=== PATIENT | female | born 2000 | race Caucasian/White ===

== ENCOUNTER → 2023-04-16 | Outpatient (CLI) | payer OTHER, SELFPAY ==
[2023-04-18 21:07] LABS: Chlamydia By Nucleic Acid AMP Negative (Negative); Gonococcus By Nucleic Acid AMP Negative (Negative)
== END | disposition home or self-care (01) ==
LOC: LABSPEC 14:49
PROVIDERS: Referring Provider Registered Nurse; Visit Provider Registered Nurse
DX: Z34.90 Encounter for supervision of normal pregnancy, unspecified, unspecified trimester (principal)
CPT/HCPCS: 87077; 87086; 87088; 87186; 87491; 87591

== ENCOUNTER 2023-04-21 10:59 | Day surgery (SDC) | payer OTHER, SELFPAY ==
[2023-04-21 11:37] VITALS: BP 118/69; PULSE 79; RESP 16; TEMP 36.3; O2SAT 100; BMI 28.0
[2023-04-21] MEDS: Doxycycline 100 MG CAPSULE PO (11:40)
[2023-04-21] MEDS: Lactated Ringers 1,000 ML 15 ML IV (11:42)
[2023-04-21 11:45] LABS: Hematocrit 40.4 % (37-47); Hemoglobin 14.2 g/dL (12.0-15.0); Mean Corp Hgb Conc 35.1 g/dL (32-36); Mean Corpuscular Hgb 30.5 pg (27.0-32.0); Mean Corpuscular Volume 86.9 fL (81-99); Mean Platelet Vol. 10.3 fl (6.2-12.0); Platelet Count 288 K/mm3 (150-450); RBC Distribution Width CV 12.2 % (11.6-14.6); RBC Distribution Width SD 38.9 fl (35.1-43.9); Red Blood Count 4.65 M/mm3 (4.2-5.4); White Blood Count 9.2 K/mm3 (4.4-11.0)
--- NOTE | 2023-04-21 12:25 | PCM.HP.BLA ---
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 Is patient in pain?: No Allergies No Known Allergies Allergy (Unverified 04/16/23 13:01) Medications vit,calcium no.40-iron fum 27 mg iron-folate no.1 1 mg tablet (PNV-Select) tab PO 04/16/23 [History Confirmed 04/16/23] Last Menstrual Period: 02/18/23 Zika: Zika virus screening: Negative : No PFSH PFSH Surgical History (Updated 04/16/23 @ 12:52 by Lynn Shaffer MA) [place] teeth removed Family History (Updated 04/16/23 @ 12:53 by Lynn Shaffer MA) Grandfather Heart diseaseGrandmother Uterine cancer Heart disease Social History (Updated 04/16/23 @ 13:23 by Stephanie Singh CNM) adopted: No household members: spouse housing: house current occupational status: employed 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 OB Visit BENI Calculator Estimated Delivery Date Method Current WG Current Estimate 11/25/23 LMP (Certain) 8w 1d Estimated Due Date: 11/08/20 Expected Delivery Route/Plan Labor Preferences- CB/BF classes: [] labor support person: [] labor intervention preferences: [] pain management options preferred: [] cut cord/dad catch: [] : [] PP control planned: [] discussed possible routes of delivery and associated risks: [] special requests: [] Specific Issue/Plans Covid status: [] Flu vaccine: [] Tdap vaccine: [] Rhogam: [] LARC form signed: [] Problem list reviewed and updated with the most current plan of care details and appropriate orders placed. Relevant counseling for the gestational age provided. Continue routine care and follow up unless otherwise noted in visit notes/problem list details Initial Weight: 168 lb Date <del>?</del> EGA Weight BP Urine Prot <del>?</del> Glucose FHR FuHt Pres Dilation <del>?</del> Effaced St Visit Note 04/16/23<del>?</del> 8w 1d 168 lb 6 oz(+6 oz) 126/77 <del>?</del> 0 <del>?</del> JV- CRL is consistent wit the established gestational age, however there is no heart beat present and gestational sac appears enlarged and irregular. Patient was counseled on risks vs benefits of treatment options of missed . She would like to proceed with surgery. Menstrual History Last Menstrual Period: 02/18/23 On hormonal BC at conception: No Antepartum Record Genetic Screening: Congenital Heart Defect: Other, Neural Tube Defect: Other, Hemoglobinopathy Or Carrier: Other, Cystic Fibrosis: Other, Chromosome Abnormality: Other, Shane-Sachs: Other, Hemophilia: Other, Intellectual Disability/Autism: Other, Recurrent Loss/Stillbirth: Other, Other Structural Defect: Other, Other Genetic Disease: Other and Maternal Metabolic Disorder: Other Infection History: Live with someone with TB or Exposed to TB: No, Patient or Partner has history of Genital Herpes: No, Rash or Viral illness since last mentrual period: No, Prior GBS-Infected child: No, History of STD: No, HIV Infection: No, History of Hepatitis: No, Recent travel outside of [place]: No, Concern for hepatitis exposure: No and Varicella immune: Yes Medical History Medical History: Negative: Diabetes, Hypertension, Heart disease, Auto-immune disorder, Kidney disease/UTI, Neurologic/epilepsy, Psychiatric, Depression/ depression, Hepatitis/liver disease, Varicosities/phlebitis, Thyroid dysfunction, Trauma/domestic violence, History of blood transfusions, D (Rh) Sensitized, Pulmonary (e.g.,TB,Asthma), Seasonal allergies, Drug/latex allergies/reactions, Breast, Textile Clothing And Footwear Mechanic surgery, Operations/hospitalizations, Anesthetic complications, History of abnormal pap, Uterine anomaly/radha, Infertility, Anti-retroviral treatment, Relevant family history and Other ACOG First Trimester First Trimester: Desire for , Alcohol, Tobacco Cessation, Illicit/Recreational Drug/Substance Use, Intimate Partner Violence, Barriers to care, Unstable Housing, Communication Barriers, Environmental/Work Hazards, Anticipated Course of Care, Nurtrition and weight gain, Toxoplasmosis Precations, Use of Any medications, Sexual activity, Exercise, Dental Care, Sauna/Hot tub use, Seat Belt use, Childbirth classes/Hospital facilities, , Travel, Indications for Ultrasound and Screening for Aneuploidy ROS Const Reports system reviewed and no additional complaints, except as documented, Reports fatigue and Denies fever(s) Eyes Reports system reviewed and no additional complaints, except as documented ENT Reports system reviewed and no additional complaints, except as documented Card Denies chest pain and Denies dyspnea Resp Reports system reviewed and no additional complaints, except as documented, Denies cough and Denies dyspnea GI Denies abdominal pain and Reports nausea Reports system reviewed and no additional complaints, except as documented Musc Reports system reviewed and no additional complaints, except as documented Skin/Breast Reports system reviewed and no additional complaints, except as documented Neuro Yes system reviewed and no additional complaints, except as documented Psych Reports system reviewed and no additional complaints, except as documented Endo Reports system reviewed and no additional complaints, except as documented and Reports fatigue Exam Const General: healthy appearing, comfortable and no acute distress Orientation: alert Resp Effort & Inspection: normal respiratory effort GI Inspection: normal to inspection Palpation: soft and no hepatosplenomegaly General: bladder normal to palpation External Female Exam: normal external appearance and normal appearance of the urethra Urethra: normal appearance of the urethra Speculum Exam - Vagina: normal appearance of the vagina and normal vaginal discharge Speculum Exam - Cervix: normal appearance of the cervix Bimanual Exam- Vagina & Uterus: normal bimanual exam, bladder normal to palpation, non-tender and other Bimanual Exam- Adnexa, other: non-tender Skin General: no rashes or lesions noted Neuro Motor: muscle tone normal throughout and no movement abnormalities noted Extrem General: normal to inspection and full ROM Supplemental Info ACOG book given and patient encouraged to read about nutrition, exercise, weight gain, and food avoidance in . Coding Level of Care Code Off vis,est,level 4 Diagnoses Supervision of normal first Z34.00 8 weeks gestation of Z3A.08 Weeks of gestation: 8 weeks Missed O02.1 Assessment and Plan Assessment and Plan (1) Supervision of normal first : Status: Acute (2) : Status: Acute Qualifiers: Weeks of gestation: 8 weeks Qualified Code(s): Z3A.08 - 8 weeks gestation of (3) Missed : Status: Acute Orders: Orders Culture, Urine Today Z34.90 - Encounter for supervision of normal , unspecified, unspecified trimester Chlamydia/GC EMILIA aptima Today Z34.90 - Encounter for supervision of normal , unspecified, unspecified trimester Plan After discussing the patient's diagnosis and treatment plan options, patient wishes to proceed with surgical management. The plan is for suction dilation and curettage on Friday at noon. I have discussed with the patient the risks, benefits, and alternatives of the procedure which include but are not limited to risks of anesthesia, bleeding, infection, possible damage to bowel, bladder, or surrounding vasculature which could lead to additional surgery to evaluate any complications. Patient agrees to procedure and wishes to proceed. ACOG/uptodate references given for additional information regarding procedure.
--- NOTE | 2023-04-21 12:28 | DCINST_ITS ---
Discharge Instructions Diet Discharge Diet: No restrictions Activity Discharge Activity: Return to Normal Activity, May Shower and May Take a Tub Bath (after 1 week) May resume sexual activity in: 1-2 weeks Weight Bearing Status: Weight bearing as tolerated Lifting Restrictions: none Dressing / Incision Call your doctor if you observe: Fever of 101 or Higher, Using more than 1 pad per hour, Shortness of breath and Uncontrolled pain Follow Up Care Please Follow Up With: Eli Leone DO When: Call [phone] to schedule appointment. Test Results: Test results from this visit will be discussed in further detail at your follow- up appointment, if applicable. Discharge Plan Admission Primary Reason for Your Visit: dilation curettage Attending Provider: Eli Leone Primary Care Provider: Miah Recinos Discharge Orders/Prescriptions Prescriptions: New ibuprofen 800 mg tablet 800 mg PO Q8H PRN (Reason: pain) Qty: 30 0RF oxycodone-acetaminophen [Percocet] 5-325 mg tablet 1 tab PO Q4H PRN (Reason: pain) 3 Days Qty: 7 0RF Rx Instructions: 1-2 tabs q 4 hrs as needed for pain Continued PNV-Select 27-1 mg tablet 1 tab PO DAILY Referrals / Follow Up: Care Physician,No Primary [Non-Staff] - Disposition Disposition (needs filled in before D/C Order can be placed): Home, Self Care
--- NOTE | 2023-04-21 12:30 | POC_PTH ---
PATIENT: KLEBER VAZ LOC: [facility] [place] U[place][id number] AGE/SX: 22/ ROOM: RE04/21/[address]: Dr. Eli Leone DO : 2000 BED: DIS: 04/21/2023 SPEC #: [id number] RECD: 04/21/23 16:55 STATUS: MARYCRUZ ROBERTS #: [id number] MICHAEL: 04/21/23 12:[address]: Eli Leone DEPT: SURGICAL PATHOLOGY RECD BY: Marcelle Corona ENTERED: 04/22/23 08:02 SP TYPE: PROD CONC OTHR DR: Dr. Miah Recinos MD Tissues: Product of conception, NOS Procedures: Surgery Specimen Level IV HEADER OPERATION: Dilation and curettage, suction PRE-OP DIAGNOSIS: Missed TISSUE SUBMITTED: Products of conception MICROSCOPIC DIAGNOSIS Products of conception, suction dilation and curettage: Immature chronic villi and decidua (products of conception), clinically missed . SJ: 04/23/2023 MICROSCOPIC DESCRIPTION Slides are reviewed. GROSS DESCRIPTION Received is one container labeled with the patient name and designated products of conception. The specimen consists of multiple irregular fragments of hemorrhagic soft tissue that in aggregate measure 9 x 8 x 2.5 cm. tissue is not identified. Lead Ramp Agent tissue is submitted in two cassettes. / GEORGE:becca 04/22/23 TC: 5 CPT: 09322
[2023-04-21] MEDS: Lidocaine 1% (20 ml mdv) 20 ML Vial (12:49)
--- NOTE | 2023-04-21 13:10 | OP.PCM_ITS ---
Problems Associated Problem List Diagnoses (1) Missed : Report of Operation Date of Procedure: 04/21/23 Pre-Operative Diagnosis: 8 week missed Post-Operative Diagnosis: 8 week missed Surgery/Procedure Performed:: suction dilation and curettage Description of Surgical Findings:: Patient was taken to the operating room and placed under MAC local anesthesia. She was prepped and draped in the normal sterile fashion the dorsal lithotomy position. Bladder was drained of clear urine and anterior lip of the cervix was grasped and the uterus sounded to 11cm Cervix was progressively dilated to allow passage of a 9mm suction curette. Progressive passes were made removing the retained products of conception without complication. Sharp curettage confirmed complete removal of the retained products. All instruments were removed from the vagina and excellent hemostasis was noted and the patient was taken to recovery in stable condition. a bedside ultrasound was performed showing a thin endometrium after the completion of the surgery Surgeon: Eli Leone education reporter: None Type of Anesthesia: MAC/Supplemental/Local Specimen's removed: products of conception Estimated Blood Loss (mL): 100cc Description of Procedure: Patient was taken to the operating room and placed under MAC local anesthesia. She was prepped and draped in the normal sterile fashion the dorsal lithotomy position. Bladder was drained of clear urine and anterior lip of the cervix was grasped and the uterus sounded to 11cm Cervix was progressively dilated to allow passage of a 9mm suction curette. Progressive passes were made removing the retained products of conception without complication. Sharp curettage confirmed complete removal of the retained products. All instruments were removed from the vagina and excellent hemostasis was noted and the patient was taken to recovery in stable condition. a bedside ultrasound was performed showing a thin endometrium after the completion of the surgery Admit VTE Documentation VTE Present on Admission: No VTE Mechan Device Prophylaxis: SCD's VTE Pharm Prophylaxis ordered?: No Multi Select Codes Urinary/Genital Urinary/Genital CPT Codes: 29026 Surg Trtmt missed Ab 1TM
[2023-04-21 13:15] VITALS: BP 104/55; BP 118/69; PULSE 70; RESP 16; TEMP 36.1; O2SAT 100
[2023-04-21 13:20] VITALS: BP 107/49; BP 118/69; PULSE 78; RESP 16; O2SAT 100
[2023-04-21 13:25] VITALS: BP 106/56; BP 118/69; PULSE 79; RESP 16; O2SAT 100
[2023-04-21 13:29] VITALS: BP 111/58; BP 118/69; PULSE 62; RESP 16; TEMP 36.5; O2SAT 100
[2023-04-21 14:01] VITALS: BP 118/69
== END 2023-04-21 14:14 | disposition home or self-care (01) ==
LOC: SDC 11:04 → AC 11:04
PROVIDERS: PCP Family Medicine; Referring Provider Obstetrics & Gynecology; Visit Provider Obstetrics & Gynecology
PROC: (CPT 59820; principal; 2023-04-21 12:15)
DX: O02.1 Missed abortion (principal)
CPT/HCPCS: 59820; 85027; 86850; 86900; 86901; 88305; J7120; J2405

== ENCOUNTER → 2023-12-29 | Outpatient (CLI) | payer OTHER, SELFPAY ==
[2024-01-01 07:08] LABS: Chlamydia By Nucleic Acid AMP Negative (Negative); Gonococcus By Nucleic Acid AMP Negative (Negative)
== END | disposition home or self-care (01) ==
LOC: LABSPEC 16:16
PROVIDERS: PCP Family Medicine; Referring Provider Obstetrics & Gynecology; Visit Provider Obstetrics & Gynecology
DX: O09.90 Supervision of high risk pregnancy, unspecified, unspecified trimester (principal); Z3A.00 Weeks of gestation of pregnancy not specified
CPT/HCPCS: 87086; 87491; 87591

== ENCOUNTER → 2024-01-19 | Outpatient (CLI) | payer OTHER, SELFPAY ==
[2024-01-19 11:11] LABS: Absolute Lymphocyte Count 1.68 X10^3/uL (0.83-4.51); Absolute Neutrophil Count 8.5 X10^3/uL (2.0-7.7); Basophil# 0.08 X10^3/uL; Basophil% 0.7 % (0-1); Eosinophil# 0.43 X10^3/uL; Eosinophils% 3.8 % (0-5); Hematocrit 40.1 % (37-47); Hemoglobin 13.4 g/dL (12.0-15.0); Lymphocyte # 1.68 X10^3/ul (0.83-4.51); Lymphocyte % 14.8 % (19-41); Mean Corp Hgb Conc 33.4 g/dL (32-36); Mean Corpuscular Hgb 29.9 pg (27.0-32.0); Mean Corpuscular Volume 89.5 fL (81-99); Mean Platelet Vol. 10.2 fl (6.2-12.0); Monocyte# 0.69 X10^3/uL; Monocyte% 6.1 % (0-10); NRBC Flagged by Analyzer 0 % (0-5); Neutrophil # 8.45 X10^3/uL (2.7-7.7); Neutrophil % 74.2 % (47-70); Platelet Count 255 K/mm3 (150-450); RBC Distribution Width CV 12.7 % (11.6-14.6); RBC Distribution Width SD 41.4 fl (35.1-43.9); Red Blood Count 4.48 M/mm3 (4.2-5.4); White Blood Count 11.4 K/mm3 (4.4-11.0)
[2024-01-19 12:16] LABS: HIV - WCH Non-Reactive (Nonreactive); Hepatitis B Surface Antigen Non-Reactive (Nonreactive); Hepatitis C Antibody Non-Reactive (Nonreactive); Rubella IgG Reactive (Nonreactive); Syphilis Antibodies Non-reactive
== END | disposition home or self-care (01) ==
LOC: PAVLAB 10:47
PROVIDERS: PCP Family Medicine; Referring Provider Obstetrics & Gynecology; Visit Provider Obstetrics & Gynecology
DX: O09.90 Supervision of high risk pregnancy, unspecified, unspecified trimester (principal)
CPT/HCPCS: 36415; 85025; 86703; 86762; 86780; 86803; 86850; 86900; 86901; 87340

== ENCOUNTER → 2024-04-26 | Outpatient (CLI) | payer OTHER, SELFPAY ==
[2024-04-26 14:33] LABS: Absolute Lymphocyte Count 1.53 X10^3/uL (0.83-4.51); Absolute Neutrophil Count 8.6 X10^3/uL (2.0-7.7); Basophil# 0.07 X10^3/uL; Basophil% 0.6 % (0-1); Eosinophil# 0.28 X10^3/uL; Eosinophils% 2.5 % (0-5); Hematocrit 40.5 % (37-47); Lymphocyte # 1.53 X10^3/ul (0.83-4.51); Lymphocyte % 13.6 % (19-41); Mean Corp Hgb Conc 34.6 g/dL (32-36); Mean Corpuscular Hgb 31.8 pg (27.0-32.0); Monocyte# 0.62 X10^3/uL; Monocyte% 5.5 % (0-10); NRBC Flagged by Analyzer 0 % (0-5); Neutrophil # 8.63 X10^3/uL (2.7-7.7); Neutrophil % 77.1 % (47-70); Platelet Count 244 K/mm3 (150-450); RBC Distribution Width CV 12.7 % (11.6-14.6); RBC Distribution Width SD 42.1 fl (35.1-43.9); White Blood Count 11.2 K/mm3 (4.4-11.0)
[2024-04-26 14:46] LABS: Glucose Challenge Gest 1H 50g 125 mg/dL (70-140)
[2024-04-26 15:12] LABS: HIV - WCH Non-Reactive (Nonreactive); Syphilis Antibodies Non-reactive
[2024-04-26 17:15] LABS: Protein, Urine (Random) < 6.0 mg/dL (<11.9); Protein:Creat Ratio 105 mg/g CRE (0-200)
== END | disposition home or self-care (01) ==
LOC: BWCLAB 13:48
PROVIDERS: Advanced Practice Midwife; PCP Family Medicine; Referring Provider Obstetrics & Gynecology; Visit Provider Obstetrics & Gynecology
DX: O10.919 Unspecified pre-existing hypertension complicating pregnancy, unspecified trimester (principal)
CPT/HCPCS: 36415; 82570; 82950; 84156; 85025; 86703; 86780; 86850; 86900; 86901

== ENCOUNTER 2024-05-11 15:23 | Outpatient (CLI) | payer OTHER, SELFPAY ==
[2024-05-11] VITALS (19 sets, daily range): BP systolic 120–156; BP diastolic 66–87; PULSE 88–112; O2SAT 98–99; BMI 33.3
[2024-05-11 16:33] LABS: Hematocrit 37.4 % (37-47); Mean Corp Hgb Conc 34.8 g/dL (32-36); Mean Corpuscular Hgb 31.4 pg (27.0-32.0); Mean Corpuscular Volume 90.3 fL (81-99); Mean Platelet Vol. 10.9 fl (6.2-12.0); Platelet Count 220 K/mm3 (150-450); RBC Distribution Width CV 12.2 % (11.6-14.6); RBC Distribution Width SD 40.1 fl (35.1-43.9); Red Blood Count 4.14 M/mm3 (4.2-5.4); White Blood Count 11.1 K/mm3 (4.4-11.0)
[2024-05-11 17:07] LABS: Creatinine, Urine (random) < 13.00 mg/dL (NO RANGE EST.); Protein, Urine (Random) < 6.0 mg/dL (<11.9)
[2024-05-11 17:08] LABS: AST(SGOT) 22 U/L (15-37); Alanine Aminotransfer ALT/SGPT 20 U/L (13-56); Creatinine, Serum 0.56 mg/dL (0.55-1.02); EST Glomerular Filtration Rate 140 mL/min (>60); Est Glom Filt Rate - Afr Amer 169 mL/min (>60); Uric Acid 3.1 mg/dL (2.6-6.0)
--- NOTE | 2024-05-11 17:26 | US_ITS ---
STUDY: OBSTETRICAL ULTRASOUND - BIOPHYSICAL PROFILE REASON FOR EXAM: Female, 23 years old hypertension -- LMP: PRIOR ULTRASOUND: None. TECHNIQUE: Transabdominal TECHNICAL QUALITY: Adequate. FINDINGS: There is a single intrauterine fetus. The fetus is in a cephalic presentation. There is demonstrated cardiac activity with a heart rate of 160 bpm. There is a normal amniotic fluid volume. The largest amniotic fluid pocket measures 4.8 x 5 cm. The amniotic fluid index (СВЕТЛАНА) is 12.58 cm. The placenta is anterior and not low-lying There are Grade 1 placental changes. Age by LMP: 30 weeks, 1 days. BENI by LMP: July 19, 2024. BIOPHYSICAL PROFILE: Breathing Movements (FBM): 2 Gross Body Movements (GBM): 2 Tone (FT): 2 Amniotic Fluid Volume (AFV): 2 TOTAL SCORE: / US/Biophysical Prof W/O Non Stres IMPRESSION: Normal biophysical profile of 01/21. Electronically Signed: Phi Shah MD at 21:09 EST Reading Location ID and State: [address] [place] [address] Tel , Service support ,
[2024-05-11] MEDS: Betamethasone/Betamethasone 30 MG/5 ML Vial 12 MG IM (17:46)
[2024-05-11] MEDS: NIFEdipine 30 MG Tablet PO (17:46)
--- NOTE | 2024-05-11 18:36 | US_ITS ---
STUDY: SECOND AND THIRD TRIMESTER OBSTETRICAL ULTRASOUND - LIMITED REASON FOR EXAM: Female, 23 years old pre eclampsia LMP: PRIOR ULTRASOUND: None. TECHNIQUE: Transabdominal TECHNICAL QUALITY: Adequate. FINDINGS: There is a single intrauterine fetus. The fetus is in a cephalic presentation. There is demonstrated cardiac activity with a heart rate of 136 bpm. There is a normal amniotic fluid volume. The largest amniotic fluid pocket measures 5.98 cm. The amniotic fluid index (СВЕТЛАНА) is 11.96 cm. The placenta is anterior and not low-lying There are Grade 1 placental changes. The cervix measures 3.6 cm in length. BIOMETRY: BPD: 7.32 cm: 29 weeks, 3 days HC: 28.52 cm: 31 weeks, 2 days AC: 25.88 cm: 30 weeks, 0 days FL: 5.42 cm: 28 weeks, 5 days Age by LMP: 30 weeks, 1 days. BENI by LMP: July 19, 2024. age by current US: 30 weeks, 1 days. BENI by current US: July 19, 2024. Estimated weight: 1419 grams, +/- 213 grams, 21 percentile. US/OB Limited With Biometrics IMPRESSION: Viable intrauterine gestation approximately 30 weeks gestational age utilizing both sonographic parameters and maternal dates. No significant abnormalities Electronically Signed: Phi Shah MD at 20:59 EST ,
--- NOTE | 2024-05-11 19:48 | OB.TRI.PN_ITS ---
Progress Notes Date of Service: 05/11/24 Progress Note: Patient presents for triage evaluation secondary to elevated bps FHT: 130 Moderate variability reactive isolated mild variable GA appropriate, overall category I tracing [place]: irritability Contractions no cervicla dilation Assessment and plan: cHTN vs GHTN. start procardia. labs WNL. 24 hour urine ordered. growth US and bpp done. celestone x 1 given. Reactive NST, reassuring maternal and status patient discharged to home to follow-up for second dose of steroid tomorrow. See problem list details for additional plan information. Laboratory Studies: Laboratory Tests 05/11/24 Range/Units 16:18 WBC 11.1 H (4.4-11.0) K/mm3 RBC 4.14 L (4.2-5.4) M/mm3 Hgb 13.0 (12.0-15.0) g/dL Hct 37.4 (37-47) % MCV 90.3 (81-99) fL MCH 31.4 (27.0-32.0) pg MCHC 34.8 (32-36) g/dL RDW Std Deviation 40.1 (35.1-43.9) fl RDW Coeff of Mimi 12.2 (11.6-14.6) % Plt Count 220 (150-450) K/mm3 MPV 10.9 (6.2-12.0) fl Creatinine 0.56 (0.55-1.02) mg/dL Est GFR (MDRD) Af Amer 169 (>60) mL/min Est GFR (MDRD) Non-Af 140 (>60) mL/min Uric Acid 3.1 (2.6-6.0) mg/dL AST 22 (15-37) U/L ALT 20 (13-56) U/L U Random Total Protein < 6.0 (<11.9) mg/dL Urine Creatinine < 13.00 (NO RANGE EST.) mg/dL Protein/Creatinin Ratio TNP Charges/Coding Procedures Urinary/Genital 52xxx-59xxx: 07654-45 non-stress test Interp
[2024-05-12 20:29] LABS: 24HR. UA Prot. Total Volume 2600 mL; Creat.Clear Total Volume 2600 mL; Creatinine Clearance 204 ml/min (100-200); Creatinine Serum Creat 0.6 mg/dL (0.6-1.0); Creatinine Urine 63.3 mg/dL (NO RANGE EST.); EST Glomerular Filtration Rate 141 mL/min (>60); Est Glom Filt Rate - Afr Amer 170 mL/min (>60)
== END 2024-05-11 20:20 | disposition home or self-care (01) ==
LOC: WPOUT 15:30 → WP 15:30
PROVIDERS: PCP Family Medicine; Referring Provider Obstetrics & Gynecology; Visit Provider Obstetrics & Gynecology
DX: O99.891 Other specified diseases and conditions complicating pregnancy (principal); R03.0 Elevated blood-pressure reading, without diagnosis of hypertension; Z3A.30 30 weeks gestation of pregnancy
CPT/HCPCS: 36415; 59025; 59050; 76816; 76819; 81050; 82565; 82570; 82575; 84156; 84450; 84460; 84550; 85027; 96372; 99221; G0378; J0702

== ENCOUNTER 2024-05-12 18:00 | Outpatient (CLI) | payer OTHER, SELFPAY ==
[2024-05-12 18:24] VITALS: BP 135/73; PULSE 103
[2024-05-12] MEDS: Betamethasone/Betamethasone 30 MG/5 ML Vial 12 MG IM (18:25)
--- NOTE | 2024-05-12 19:12 | PCM.PN.BLA ---
Progress Note patient presents to L&D triage today for a repeat dose of celestone only. She did not express any concerns and no testing or exams were performed. She will follow up in the office next week
== END 2024-05-12 18:30 | disposition home or self-care (01) ==
LOC: WPOUT 18:10 → WP 18:11
PROVIDERS: PCP Family Medicine; Visit Provider Obstetrics & Gynecology
DX: Z34.90 Encounter for supervision of normal pregnancy, unspecified, unspecified trimester (principal); Z3A.00 Weeks of gestation of pregnancy not specified
CPT/HCPCS: 96372; 99221; G0378; J0702

== ENCOUNTER → 2024-05-17 | Outpatient (CLI) | payer OTHER, SELFPAY ==
[2024-05-17 15:49] LABS: Absolute Lymphocyte Count 1.54 X10^3/uL (0.83-4.51); Absolute Neutrophil Count 8.9 X10^3/uL (2.0-7.7); Basophil# 0.04 X10^3/uL; Basophil% 0.3 % (0-1); Eosinophil# 0.12 X10^3/uL; Hematocrit 37.7 % (37-47); Lymphocyte # 1.54 X10^3/ul (0.83-4.51); Lymphocyte % 13.4 % (19-41); Mean Corp Hgb Conc 34.5 g/dL (32-36); Mean Corpuscular Hgb 31.4 pg (27.0-32.0); Mean Corpuscular Volume 91.1 fL (81-99); Mean Platelet Vol. 10.7 fl (6.2-12.0); Monocyte# 0.85 X10^3/uL; Monocyte% 7.4 % (0-10); NRBC Flagged by Analyzer 0 % (0-5); Neutrophil # 8.89 X10^3/uL (2.7-7.7); Neutrophil % 77.2 % (47-70); Platelet Count 252 K/mm3 (150-450); RBC Distribution Width CV 12.3 % (11.6-14.6); RBC Distribution Width SD 40.5 fl (35.1-43.9); Red Blood Count 4.14 M/mm3 (4.2-5.4); White Blood Count 11.5 K/mm3 (4.4-11.0)
[2024-05-17 16:06] LABS: ALB/GLOB Ratio 0.8 RATIO (0.9-2.4); AST(SGOT) 19 U/L (15-37); Alanine Aminotransfer ALT/SGPT 24 U/L (13-56); Alkaline Phosphatase 89 U/L (45-117); Anion Gap 5 (5-15); BUN 9 mg/dL (7-18); BUN/Creat Ratio 16.3 RATIO (10-20); Calcium,Total 8.8 mg/dL (8.5-10.1); Chloride 106 mmol/L (98-107); Creatinine, Serum 0.55 mg/dL (0.55-1.02); EST Glomerular Filtration Rate 143 mL/min (>60); Est Glom Filt Rate - Afr Amer 173 mL/min (>60); Globulin 3.7 g/dL (2.2-4.2); Glucose 117 mg/dL (74-106); Potassium 3.8 mmol/L (3.5-5.1); Protein, Total 6.7 g/dL (6.4-8.2); Sodium Level 137 mmol/L (136-145)
== END | disposition home or self-care (01) ==
LOC: BWCLAB 15:31
PROVIDERS: PCP Family Medicine; Referring Provider Obstetrics & Gynecology; Visit Provider Obstetrics & Gynecology
DX: O10.919 Unspecified pre-existing hypertension complicating pregnancy, unspecified trimester (principal)
CPT/HCPCS: 36415; 80053; 85025

== ENCOUNTER → 2024-06-10 | Outpatient (CLI) | payer OTHER, SELFPAY ==
--- NOTE | 2024-06-10 13:27 | US_ITS ---
STUDY: SECOND AND THIRD TRIMESTER OBSTETRICAL ULTRASOUND - LIMITED REASON FOR EXAM: Female, 23 years old Growth LMP: 10/13/2023 PRIOR ULTRASOUND: 05/11/2024 TECHNIQUE: Transabdominal TECHNICAL QUALITY: Adequate. FINDINGS: There is a single intrauterine fetus. The fetus is in a cephalic presentation. There is demonstrated cardiac activity with a heart rate of 143 bpm. There is a normal amniotic fluid volume. The largest amniotic fluid pocket measures 4.9 cm. The amniotic fluid index (СВЕТЛАНА) is 10.3 cm. The placenta is anterior in location and is not low lying. There are Grade 1 placental changes. The cervix measures 4.0 cm cm in length. BIOMETRY: BPD: 8.4 cm: 33 weeks, 5 days HC: 31.1 cm: 34 weeks, 5 days AC: 30.6 cm: 34 weeks, 3 days FL: 6.3 cm: 32 weeks, 4 days Age by LMP: 34 weeks, 3 days. BENI by LMP: 07/19/2024. age by prior US: weeks, days. BENI by prior US: . age by current US: 34 weeks, 0 days. BENI by current US: 07/22/2024. Estimated weight: 2310 grams, +/- 346 grams, 31 percentile. Gender: US/OB Limited With Biometrics IMPRESSION: Living intrauterine of 34 weeks 0 days as described above. Electronically Signed: Willy Najera MD at 14:49 EST ,
== END | disposition home or self-care (01) ==
PROVIDERS: PCP Family Medicine; Referring Provider Obstetrics & Gynecology; Visit Provider Obstetrics & Gynecology
DX: O10.913 Unspecified pre-existing hypertension complicating pregnancy, third trimester (principal); O09.93 Supervision of high risk pregnancy, unspecified, third trimester; Z3A.34 34 weeks gestation of pregnancy
CPT/HCPCS: 76816

== ENCOUNTER → 2024-06-21 | Outpatient (CLI) | payer OTHER, SELFPAY | END | disposition home or self-care (01) | LOC: LABSPEC 16:22 | PROVIDERS: PCP Family Medicine; Referring Provider Advanced Practice Midwife; Visit Provider Advanced Practice Midwife | DX: O09.93 Supervision of high risk pregnancy, unspecified, third trimester (principal); Z3A.00 Weeks of gestation of pregnancy not specified | CPT/HCPCS: 87077; 87081; 87186 ==

== ENCOUNTER 2024-06-28 19:26 | Inpatient (IN) | payer OTHER, SELFPAY ==
[2024-06-28 19:19] VITALS: BMI 34.7
[2024-06-28 19:37] VITALS: BP 135/75; PULSE 97
[2024-06-28 20:15] LABS: Absolute Lymphocyte Count 1.73 X10^3/uL (0.83-4.51); Absolute Neutrophil Count 8.4 X10^3/uL (2.0-7.7); Basophil# 0.07 X10^3/uL; Basophil% 0.6 % (0-1); Eosinophil# 0.22 X10^3/uL; Hematocrit 35.9 % (37-47); Hemoglobin 12.8 g/dL (12.0-15.0); Lymphocyte # 1.73 X10^3/ul (0.83-4.51); Lymphocyte % 15.3 % (19-41); Mean Corp Hgb Conc 35.7 g/dL (32-36); Mean Corpuscular Hgb 31.2 pg (27.0-32.0); Mean Corpuscular Volume 87.6 fL (81-99); Mean Platelet Vol. 11.4 fl (6.2-12.0); Monocyte# 0.78 X10^3/uL; Monocyte% 6.9 % (0-10); NRBC Flagged by Analyzer 0 % (0-5); Neutrophil # 8.41 X10^3/uL (2.7-7.7); Neutrophil % 74.6 % (47-70); Platelet Count 225 K/mm3 (150-450); RBC Distribution Width CV 12.1 % (11.6-14.6); RBC Distribution Width SD 38.5 fl (35.1-43.9); White Blood Count 11.3 K/mm3 (4.4-11.0)
[2024-06-28 20:53] LABS: Syphilis Antibodies Non-reactive
[2024-06-28] MEDS: NORMAL SALINE 0.9% IV (20:58)
[2024-06-28] MEDS: PENICILLIN POT IV (20:58)
[2024-06-28] MEDS: miSOPROStol 25 MCG TABLET VAGINAL (20:59)
[2024-06-28] MEDS: Lactated Ringers 1,000 ML 50 ML IV (21:00)
[2024-06-28 22:06] VITALS: BP 126/65; PULSE 85
[2024-06-28 22:07] VITALS: RESP 16; TEMP 36.8
[2024-06-29] VITALS (33 sets, daily range): BP systolic 92–136; BP diastolic 50–77; PULSE 74–111; RESP 16–18; TEMP 36.1–36.9; O2SAT 98–100
--- NOTE | 2024-06-29 00:07 | PCM.HP.OB ---
HPI - General General Date of Admission: 06/28/24 Date of Service: 06/28/24 HPI Narrative KLEBER VZA, is a 23 F 37.1 weeks who presents to unit for induction of labor for chronic htn. Maternal Data Information BENI Calculator Estimated Delivery Date Method Current WG Current Estimate 07/19/24 Ultrasound #1 37w 1d Other Estimates 07/25/24 LMP (Certain) 36w 2d Final BENI: 07/19/24 Final BENI Source: US >20 weeks Gestational age: 37.1 [facility] Medical History (Updated 06/29/24 @ 00:08 by Mariola Walker CNM) Chronic hypertension Seasonal allergies Wears glasses Wears contact lenses Non-smoker Positive GBS test Missed Home Medications ?Medication ?Instructions ?Recorded ?Last Taken ?Type vit,calcium no.40-iron 1 tab PO DAILY 04/16/23 06/28/24 History fum 27 mg iron-folate no.1 1 mg tablet (PNV-Select) nifedipine 30 mg tablet,extended 30 mg PO DAILY hypertension #30 05/11/24 06/28/24 Rx release 24 hr (Procardia XL) tab-caps Allergy/AdvReac Type Severity Reaction Status Date / Time No Known Allergies Allergy Verified 06/28/24 19:45 Family History Grandfather Heart disease Grandmother Uterine cancer Heart disease Surgical History Status post D&C [place] teeth removed Social History adopted: No household members: spouse housing: house current occupational status: employed 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 current occupational exposures/hazards: No pets and animals: No history of recent travel: No sexually active: Yes Smoking Status: Never smoker alcohol intake: former details: socially not while substance use type: does not use well-balanced diet: daily or most days caffeine: Yes Type: coffee Number of servings: 1 eating out: rarely or never during the past year weight has: remained stable what type of physical activity do you participate in: running and weight training frequency: 1-2 times per week duration: 15-30 minutes/day tomas/taoism: Yarsanism seatbelt use: always do you feel safe at home: Yes additional social history: Moise - [employer] History 2 Elective abortions Hx Para 0 Spontaneous abortions 1 Hx # Term Pregnancies Ectopic pregnancies Hx # Pregnancies Multiple births # of living children 0 Past Pregnancies Del. Date Name GA/Weeks Outcome Route Bth Weight Infant Gen Labor Lgth Anesthesia Del Locatn Provider FOB 04/16/23 missed 8 spontaneous Eli Leone Delivery Date: 04/16/23 Last Updated by: Elizabeth Noe D&Ariana Visit Details Expected Delivery Route/Plan Labor Preferences- CB/BF classes: enc labor support person: Moise labor intervention preferences: [] pain management options preferred: open to epidural if requested cut cord/dad catch: Yes!! : yes PP control planned: [] discussed possible routes of delivery and associated risks: [] special requests: [] Plans Covid status: [] Flu vaccine: declines Tdap vaccine: given Rhogam: given LARC form signed: yes Problem list reviewed and updated with the most current plan of care details and appropriate orders placed. Relevant counseling for the gestational age provided. Continue routine care and follow up unless otherwise noted in visit notes/problem list details OB Flowsheet Initial Weight: Not Recorded Date <del>?</del> EGA Weight BP Urine Prot <del>?</del> Glucose FHR FuHt Pres Dilation <del>?</del> Effaced St Visit Note 12/29/23 <del>?</del> 11w 0d 173 lb 4 oz 150/90 <del>?</del> 180 <del>?</del> JV- CRL measured 37.1mm and off by approximately 5 days from LMP. patient declines NIPT. JV- CRL measured 37.1mm and off by approximately 6 days from LMP. patient declines NIPT. JV- CRL measured 37.1mm and off by approximately 6 days from LMP. patient declines NIPT. pt is anxious today due to history of prior miscarriage. 01/26/24 <del>?</del> 15w 0d 176 lb 142/86 Negative <del>?</del> Negative 152 <del>?</del> MH-No VB or cramping. Easily heard FHT. Nausea improving 02/23/24 <del>?</del> 19w 0d 180 lb 4 oz 140/77 Negative <del>?</del> Negative 156 <del>?</del> JV- no lof, vaginal bleeding, or cramping. setting up home bp monitoring. anatomy scan ordered. pt still thinks this is anxiety. we discussed that even if it is anxiety it can still lead to complications. she understands we will likely need to start bp medication soon. 03/22/24 <del>?</del> 23w 0d 185 lb 142/77 Negative <del>?</del> Negative 150 <del>?</del> KW- no vb/lof/ctx. good fm. reviewed follow up anatomy scan. Needs echo for limited cardiac views. has scheduled for next week. 28 week labs discussed. will be 5 weeks for next appt due to needing rhogam. 04/26/24 <del>?</del> 28w 0d 198 lb 150/97 125/82 <del>?</del> 145 28 <del>?</del> KW- no vb/lof/ctx. good fm. taking bps at home. 110/70s-120/70s. no headaches/dizziness/ blurred vision. Tdap and rhogam today. 05/11/24 <del>?</del> 30w 1d 195 lb 8 oz 150/89 Negative <del>?</del> Negative 145 30 <del>?</del> SM- no vb lof good fm no reulga rctx SM- no vb lof good fm no reulga rctx, elevated bps sent to l and d for evaluation. nl bps at home but persistently elevated here. 05/17/24 <del>?</del> 31w 0d 192 lb 136/84 Negative <del>?</del> Negative 140 <del>?</del> SM- bps borderline at home, no ibrahim bv no vb lof good fm 05/25/24 <del>?</del> 32w 1d 194 lb 8 oz 135/77 Negative <del>?</del> Negative 140 <del>?</del> MH-reactive NST. BP well controlled. No VB, LOF. Good FM. 05/31/24 <del>?</del> 33w 0d 196 lb 142/88 <del>?</del> 135 <del>?</del> KW NST only. reactive 06/10/24 <del>?</del> 34w 3d 197 lb 126/82 <del>?</del> 130 34 <del>?</del> KW- no vb/lof/ctx. good fm. had growth US today. pending. discussion on IOL at 37 weeks. 06/15/24 <del>?</del> 35w 1d 203 lb 8 oz 129/80 Negative <del>?</del> Negative 140 <del>?</del> MH-NST only reactive 06/21/24 <del>?</del> 36w 0d 202 lb 142/81 Negative <del>?</del> Negative 135 36 <del>?</del> KW- NST reactive. no vb/lof/ctx. good fm. confirmed with SM and 37 week IOL set up. GBS today. NST FHR Rate Baby A Baseline: 145 Variability:: Moderate Accelerations:: 15 x 15 Decelerations:: None NST Reactive:: Yes FHR Category:: Category I ROS Constitutional Constitutional: Denies change in weight, fatigue, fever(s), headache(s), poor appetite or weakness Eyes Eyes: Denies blurry vision, change in vision, floaters, seeing flashes or spots in vision ENT HEENT: Denies dizziness, headache(s), loss taste/smell or sore throat Cardiovascular Cardiovascular: Denies chest pain, dizziness, dyspnea, irregular heart rhythm, lightheadedness, palpitations or rapid heart rate Respiratory/Chest Respiratory/Chest: Denies change in mental status, chest tightness, cough, dyspnea or breast pain Gastrointestinal Gastrointestinal: Denies anorexia, chewing difficulty, constipation, diarrhea or weight changes Genitourinary Genitourinary: Denies difficulty urinating, dysuria, flank pain, genital pain, urinary frequency or urinary urgency Musculoskeletal Musculoskeletal: Denies back pain, difficulty walking, extremity pain, joint pain, muscle cramps or muscle weakness Integumentary Integumentary: Denies lesions or unusual bruising Neurologic Neurologic: Denies abnormal movements, abnormal speech, dizziness, numbness, seizure-like activity, syncope or weakness Psychiatric Psychiatric: Denies behavioral changes, change in appetite, confusion, depression, homicidal ideation, suicidal ideation or suicidal thoughts Endocrine Endocrinology: Denies excessive sweating, polydipsia or polyuria Hematologic/Lymphatic Hematologic/Lymphatic: Denies anemia Allergic/Immunologic Allergic/Immunologic: Denies itchy eyes, lip swelling, throat swelling, tongue swelling or wheezing Vital Signs Vital Signs Vital Signs: 06/28/24 19:37 06/28/24 19:37 06/28/24 22:06 Temperature Temperature Source Pulse Rate 97 Respiratory Rate Blood Pressure 135/75 H 126/65 H BP Systolic 135 126 BP Diastolic 75 65 06/28/24 22:06 06/28/24 22:07 06/28/24 22:07 Temperature Temperature Source Temporal Pulse Rate 85 Respiratory Rate 16 Blood Pressure BP Systolic BP Diastolic 06/28/24 22:07 Temperature 98.2 F Temperature Source Pulse Rate Respiratory Rate Blood Pressure BP Systolic BP Diastolic Weight Weight: 202 lb Body Mass Index (BMI) 34.7 Physical Exam Const alert, oriented x3 and no apparent distress General Appearance: cooperative Orientation / Consciousness: awake HEENT normocephalic Neck full ROM Lymph Lymphatic: no lymphadenopathy noted Chest inspection of chest normal Resp normal respiratory effort and normal air movement Effort and Inspection: able to speak in complete sentences and symmetric chest movement GI soft to palpation and non-tender Inspection: gravid Palpation: soft; Negative for tender external exam normal Back/Spine normal to inspection Extremity normal to inspection and full ROM Skin no rashes or lesions noted Psych mental status grossly normal Appearance: grossly normal Speech: normal speech Labs Labs Labs: Blood Type A NEGATIVE Antibody Screen NEGATIVE Hct 35.9 % (37-47) L Hgb 12.8 g/dL (12.0-15.0) Obstetrics Ultrasound Syphilis Total Ab Non-reactive Rubella IgG Antibody Reactive (Nonreactive) Hep Bs Antigen Non-Reactive (Nonreactive) Hepatitis C Antibody Non-Reactive (Nonreactive) Chlamydia DNA (EMILIA) Negative (Negative) N.gonorrhoeae DNA (EMILIA) Negative (Negative) HIV 1&2 Antibody Non-Reactive (Nonreactive) Glucose 1 Hr 50 gm 125 mg/dL (70-140) Assessment & Plan (1) Encounter for induction of labor: PLAN: Patient presents IOL, plan management for with cytotec neal bulb pitocin/AROM. Pain management: plans epidural. GBS positive. Management of any complications: see problem list I have reviewed the [facility] and made any clinically relevant updates. Dr Roberto aware of admission, assessment and plan. agrees with above (2) Chronic hypertension affecting : COMMENT: 05/11- persistent elevation. nl labs. growth US done, start on procardia and celestone course given. recommend weekly nsts. growth US q 4 weeks. home blood pressure monitoring ordered/readings now nl with med (3) Rh negative status during : QUALIFIERS: Trimester: second trimester Qualified Code(s): O26.892 - Other specified related conditions, second trimester; Z67.91 - Unspecified blood type, Rh negative COMMENT: Rhogam given 04/26/24 (4) History of miscarriage, currently : (5) Supervision of high-risk : QUALIFIERS: Trimester: third trimester Qualified Code(s): O09.93 - Supervision of high risk , unspecified, third trimester COMMENT: PRR , BENI 07/25/24, Moise (6) : QUALIFIERS: Weeks of gestation: 36 weeks Qualified Code(s): Z3A.36 - 36 weeks gestation of COMMENT: anatomy nl- echo nl, declines genetic & carrier testing (7) Positive GBS test: COMMENT: treat in labor Charges/Coding Multi Select Codes Urinary/Genital Urinary/Genital CPT Codes: No Charge
[2024-06-29] MEDS: miSOPROStol 25 MCG TABLET VAGINAL ×2 (01:08→05:08)
[2024-06-29] MEDS: Penicillin G 3,000,000 Units 50 ML 100 UNITS IV ×5 (01:08→22:58)
[2024-06-29] MEDS: NIFEdipine 30 MG Tablet PO (07:45)
[2024-06-29] MEDS: 0.9% Normal Saline Single 100 ML IV.SOLN. INTRA-UTER (08:20)
--- NOTE | 2024-06-29 08:51 | PCM.PN.BLA ---
Progress Note fb placed cat I tracing bps WNL
[2024-06-29] MEDS: Oxytocin 15 Units/NS 250ml 15 UNITS/250 ML IV.SOLN 2 UNITS IV (09:15)
[2024-06-29] MEDS: Lactated Ringers 1,000 ML 999 ML IV ×2 (15:00→17:29)
[2024-06-29] MEDS: fentaNYL-bupivacaine (epidural) 100 ML BAG EPIDURAL ×2 (15:45→20:08)
--- NOTE | 2024-06-29 19:32 | NURSING ---
pitocin restarted per verbal report of dayshift ALEKSANDER Bo
[2024-06-29] MEDS: Lactated Ringers 1,000 ML 200 ML IV (20:08)
--- NOTE | 2024-06-29 21:20 | MDS.RN ---
placed by chantale ARMIJO per bedside report.
--- NOTE | 2024-06-29 21:36 | PCM.PN.BLA ---
Progress Note continue pit per protocol, cat i tracing after pitocin break. trying different position changes.
[2024-06-30] VITALS (22 sets, daily range): BP systolic 105–132; BP diastolic 56–73; PULSE 81–117; RESP 16–18; TEMP 36.3–37.4; O2SAT 96–97
[2024-06-30] MEDS: fentaNYL-bupivacaine (epidural) 100 ML BAG EPIDURAL (00:55)
[2024-06-30] MEDS: Oxytocin 15 Units/NS 250ml 15 UNITS/250 ML IV.SOLN 83 UNITS IV (02:23)
[2024-06-30] MEDS: Oxytocin 10 UNITS/ML Vial IM (02:26)
--- NOTE | 2024-06-30 02:35 | OB.VAGDELI_ITS ---
Assessment & Plan (1) Encounter for induction of labor: (2) Chronic hypertension affecting : COMMENT: 05/11- persistent elevation. nl labs. growth US done, start on procardia and celestone course given. recommend weekly nsts. growth US q 4 weeks. home blood pressure monitoring ordered/readings now nl with med (3) Rh negative status during : QUALIFIERS: Trimester: second trimester Qualified Code(s): O26.892 - Other specified related conditions, second trimester; Z67.91 - Unspecified blood type, Rh negative COMMENT: Rhogam given 04/26/24 (4) History of miscarriage, currently : (5) Supervision of high-risk : QUALIFIERS: Trimester: third trimester Qualified Code(s): O09.93 - Supervision of high risk , unspecified, third trimester COMMENT: PRR , BENI 07/25/24, Moise (6) : QUALIFIERS: Weeks of gestation: 36 weeks Qualified Code(s): Z3A.36 - 36 weeks gestation of COMMENT: anatomy nl- echo nl, declines genetic & carrier testing (7) Positive GBS test: COMMENT: treat in labor (8) Vaginal delivery: COMMENT: SM IOL chtn 37 boy Maternal Data Information BENI Calculator Estimated Delivery Date Method Current WG Current Estimate 07/19/24 Ultrasound #1 37w 2d Other Estimates 07/25/24 LMP (Certain) 36w 3d Vaginal Delivery Maternal Presentation Maternal Presentation: see assessment and plan Vaginal Delivery Information Procedure Performed: Spontaneous Vaginal Delivery Surgeon/Practitioner: Reina Maria Pre-Procedure Diagnosis: see assessment and plan Post-Procedure Diagnosis: same Type of anesthesia: Epidural Findings Description of procedure: Patient began pushing and delivered the head in the darrius presentation. The head was delivered atraumatically . The anterior and posterior shoulders delivered without complication followed by the rest of the infant and the was placed on the maternal abdomen. Delayed cord clamping was employed for approximately 60 seconds. Cord was clamped and cut and gentle traction was applied to the cord and the placenta delivered spontaneously immediately fo llowing it was noted to be intact with three-vessel cord. The perineum and vagina were inspected and was noted to have a second -degree laceration that was repaired in the usual fashion with 3-0 vicryl rapide EBL was 300. Patient and infant tolerated delivery well. Presentation: Vertex Placental Delivery Description: Spontaneous Specimen collected: Yes Description of specimen(s) removed: placenta Maintenance Shop Manager cnc maintenance technician: No Post Vaginal Deli Medications given after delivery: Other (pitocin) Complication Complications: No Multi Select Codes Urinary/Genital Urinary/Genital CPT Codes: 39695 Vaginal Delivery [facility]
--- NOTE | 2024-06-30 02:50 | DCINST_ITS ---
Discharge Instructions Diet Discharge Diet: No restrictions DC O2, CPAP, BIPAP needs Home O2 Discharge instructions: No Dressing / Incision Discharge Activity: Return to Normal Activity, May Not Drive (while taking narcotic pain medications.) and May Shower May resume sexual activity in: 4-6 weeks Dressing / Incision Call your doctor if your incision/area has: Continuous Slow Oozing, Sudden Increased Bleeding, Increased Pain/ Swelling, Increased Redness and Foul Smelling Discharge Follow Up Care Please Follow Up With: Reina Maria MD When: Call [phone] to make an appointment with your doctor in 6 weeks. If you had elevated blood pressure or 4th degree laceration, you will need to be seen in 2 weeks. Test Results: Test results from this visit will be discussed in further detail at your follow- up appointment, if applicable. Discharge Plan Admission Admit Date/Time: 06/28/24 19:26 Attending Provider: Reina Maria Primary Care Provider: Miah Recinos Discharge Orders/Prescriptions Prescriptions: No Action PNV-Select 27-1 mg tablet 1 tab PO DAILY nifedipine [Procardia XL] 30 mg tablet extended release 24hr 30 mg PO DAILY Qty: 30 2RF Referrals / Follow Up: Miah Recinos MD [Primary Care Provider] - Disposition Disposition (needs filled in before D/C Order can be placed): Home, Self Care
[2024-06-30] MEDS: Benzocaine/Lanolin/Aloe Vera 85 GM Spray 1 SPRAY TOPICAL (08:45)
[2024-06-30] MEDS: Rho(D) Immune Globulin 300 MCG (1500 Unit) Syringe IV (10:41)
[2024-06-30] MEDS: Naproxen 500 MG Tablet PO (15:37)
[2024-06-30] MEDS: Acetaminophen 500 MG Tablet 1000 MG PO (20:18)
[2024-07-01] VITALS (12 sets, daily range): BP systolic 117–131; BP diastolic 65–83; PULSE 70–87; RESP 16; TEMP 36.4–36.8; O2SAT 95–98
--- NOTE | 2024-07-01 09:19 | PN.OBGYN_ITS ---
Subjective Subjective Patient doing well without complaints. Tolerating PO. Ambulating and voiding without difficulty. feeding well. Denies chest pain, shortness of breath, calf pain/swelling, fevers, chills, lightheadedness. Objective Data Objective Data Vital Signs: Vital Signs Temp Pulse Resp BP Pulse Ox O2 Del Method 97.5 F L 74 16 117/83 H 97 Room Air 07/01/24 02:00 07/01/24 02:48 07/01/24 02:00 07/01/24 02:48 07/01/24 02:47 07/01/24 02:00 Oxygen Delivery Method Room Air Weight: 202 lb Body Mass Index (BMI) 34.7 Intake & Output: Intake and Output for Last 24 Hours 06/29/24 06/30/24 07/01/24 23:59 23:59 23:59 Intake Total 3110.01 / 3110.01 1329.67 / 1329.67 Output Total 1600 / 1600 2500 / 2500 Balance 1510.01 / 1510.01 -1170.33 / -1170.33 Lab / Micro Data 06/28/24 19:55 Labs: Laboratory Results - last 24 hr 06/30/24 07:40: Screen NEGATIVE, Baby's Blood Type A POSITIVE, Baby's MARCIE NEGATIVE ROS Constitutional Constitutional: Reports systems reviewed and no addt'l complaints, except as documented Cardiovascular Cardiovascular: Reports systems reviewed and no addt'l complaints, except as documented Respiratory/Chest Respiratory/Chest: Reports systems reviewed and no addt'l complaints, except as documented Gastrointestinal Gastrointestinal: Reports systems reviewed and no addt'l complaints, except as documented Physical Exam Const alert, oriented x3 and no apparent distress HEENT Head and Scalp: atraumatic Resp normal respiratory effort GI soft to palpation and non-tender Bimanual Exam - Vag & Uterus: uterus non-tender Uterus Palpation: uterus fundus firm (below Umbilicus) Assessment & Plan (1) Vaginal delivery: COMMENT: SM IOL chtn 37 boy Anum PLAN: Plan s/p PPD # 1 1. routine post delivery care 2. breast feeding- support given 3. rh neg 4. rubella immune stay to [facility]
[2024-07-01] MEDS: Naproxen 500 MG Tablet PO (17:09)
[2024-07-02 05:03] VITALS: BP 118/74; PULSE 71; PULSE 75; RESP 16; TEMP 36.4; O2SAT 98
--- NOTE | 2024-07-02 08:44 | DS.PCM_ITS ---
Providers Date of Admission: 06/28/24 Primary Care Physician: Dr. Miah Recinos MD Reason For Visit: VAG Diagnosis Discharge Diagnosis (1) Vaginal delivery: Status: Acute Code(s): O80 - Encounter for full-term uncomplicated delivery Medications at Discharge Home Medications vit,calcium no.40-iron fum 27 mg iron-folate no.1 1 mg tablet (PNV- Select) 1 tab PO DAILY 04/16/23 nifedipine 30 mg tablet,extended release 24 hr (Procardia XL) 30 mg PO DAILY hypertension #30 tab-caps 05/11/24 Hospital Course Operations None Summary of Care Provided Hospital Course: The patient was admitted on 06/29/24 for induction of labor. She delivered her baby on 06/30/24. The next 2 hospital days were uncomplicated. On day #2 she requested dc to home. Physical Exam HEENT normocephalic Resp normal respiratory effort and normal air movement GI soft to palpation, non-tender and non-distended no CVA tenderness Extremity normal to inspection General Extremity: edema bilateral (trace ) Weight / BMI Weight Weight: 202 lb Body Mass Index (BMI) 34.7 ABG / Lab / Microbiology Data 06/28/24 19:55 D/C Instructions Discharge Diet: No restrictions May resume sexual activity in: 4-6 weeks Weight Bearing Status: Full weight bearing Call your doctor if your incision/area has: Continuous Slow Oozing, Sudden Increased Bleeding, Increased Pain/ Swelling, Increased Redness and Foul Smelling Discharge Call your doctor if you observe: Fever of 101 or Higher and Using more than 1 pad per hour Suture Line Care: Avoid Pulling/Pushing and Avoid Pinching/Bending Cleanse incision/area with: Soap & Water and Keep Dressing Clean & Dry DC O2, CPAP, BIPAP Needs Home O2 Discharge instructions: No Please Follow Up With: Reina Maria MD When: Call [phone] to make an appointment with your doctor in 6 weeks. If you had elevated blood pressure or 4th degree laceration, you will need to be seen in 2 weeks. Meaningful Use Info Meaningful Use Meaningful Use Diagnoses (Choose all that apply): None applicable Ischemic Stroke Statin Dosing Therapy Reference: STATIN DOSE THERAPY REFERENCE: * Patients > 75 years receive moderate or high dose statin therapy. * Patients 75 years or YOUNGER should receive HIGH intensity statin dose unless contraindicated. You will be required to document reason for non-treatment if statin daily dose does not meet guidelines. HIGH DOSE STATIN THERAPY DAILY Atorvastatin > than or = to 40 mg Rosuvastatin > than or = to 20 mg Amlodipine + Atorvastatin > than or = to 2.5/40 mg Ezetimibe + Simvastatin 10/80 mg Simvastatin 80mg Discharge Plan Admission Admit Date/Time: 06/28/24 19:26 Attending Provider: Reina Maria Primary Care Provider: Miah Recinos Discharge Orders/Prescriptions Prescriptions: No Action PNV-Select 27-1 mg tablet 1 tab PO DAILY nifedipine [Procardia XL] 30 mg tablet extended release 24hr 30 mg PO DAILY Qty: 30 2RF Referrals / Follow Up: Miah Recinos MD [Primary Care Provider] - Disposition Disposition (needs filled in before D/C Order can be placed): Home, Self Care
[2024-07-02 10:00] VITALS: BP 132/71; PULSE 78; RESP 16; TEMP 36.7; O2SAT 100
[2024-07-02 12:05] VITALS: BP 122/73; PULSE 82
--- NOTE | 2024-07-06 15:34 | NURSING ---
Here for consult on 07/03/24, follow up phone call questions asked at that time. Patient states she is feeling good, denies any pain, headaches, visual changes or Baby Blues. States her bleeding is minimal. has been going well and she is nursing every 2-3 hours and using nipple shield. Denies any questions or concerns at this time.
== END 2024-07-02 14:00 | disposition home or self-care (01) | DRG 807 ==
PROVIDERS: Advanced Practice Midwife; Admitting Provider Obstetrics & Gynecology; PCP Family Medicine; Referring Provider Obstetrics & Gynecology; Visit Provider Obstetrics & Gynecology
DX: O10.02 Pre-existing essential hypertension complicating childbirth (principal); Z37.0 Single live birth; O70.1 Second degree perineal laceration during delivery; O99.824 Streptococcus B carrier state complicating childbirth; Z3A.37 37 weeks gestation of pregnancy
CPT/HCPCS: 59025; 59050; 85025; 85461; 86780; 86850; 86900; 86901; 90384; 99221; G0378; J2790; J2791

== ENCOUNTER → 2024-07-07 | Outpatient (CLI) | payer OTHER, SELFPAY ==
[2024-07-07 11:14] LABS: Absolute Lymphocyte Count 1.22 X10^3/uL (0.83-4.51); Absolute Neutrophil Count 3.9 X10^3/uL (2.0-7.7); Basophil# 0.07 X10^3/uL; Basophil% 1.1 % (0-1); Eosinophil# 0.43 X10^3/uL; Hemoglobin 14.9 g/dL (12.0-15.0); Lymphocyte # 1.22 X10^3/ul (0.83-4.51); Mean Corp Hgb Conc 33.1 g/dL (32-36); Mean Corpuscular Hgb 30.2 pg (27.0-32.0); Mean Corpuscular Volume 91.3 fL (81-99); Mean Platelet Vol. 10.6 fl (6.2-12.0); Monocyte# 0.46 X10^3/uL; Monocyte% 7.5 % (0-10); NRBC Flagged by Analyzer 0 % (0-5); Neutrophil # 3.92 X10^3/uL (2.7-7.7); Neutrophil % 64.2 % (47-70); Platelet Count 293 K/mm3 (150-450); RBC Distribution Width CV 12.1 % (11.6-14.6); RBC Distribution Width SD 40.7 fl (35.1-43.9); Red Blood Count 4.93 M/mm3 (4.2-5.4); White Blood Count 6.1 K/mm3 (4.4-11.0)
[2024-07-07 12:40] LABS: Protein, Urine (Random) 8.4 mg/dL (<11.9); Protein:Creat Ratio 81 mg/g CRE (0-200)
[2024-07-07 12:49] LABS: ALB/GLOB Ratio 0.8 RATIO (0.9-2.4); AST(SGOT) 33 U/L (15-37); Alanine Aminotransfer ALT/SGPT 90 U/L (13-56); Albumin, Serum 3.2 g/dL (3.2-5.0); Alkaline Phosphatase 108 U/L (45-117); Anion Gap 8 (5-15); BUN 15 mg/dL (7-18); BUN/Creat Ratio 16.1 RATIO (10-20); Calcium,Total 9.8 mg/dL (8.5-10.1); Chloride 106 mmol/L (98-107); Creatinine, Serum 0.93 mg/dL (0.55-1.02); EST Glomerular Filtration Rate 78 mL/min (>60); Est Glom Filt Rate - Afr Amer 95 mL/min (>60); Globulin 3.9 g/dL (2.2-4.2); Glucose 60 mg/dL (74-106); Potassium 4.3 mmol/L (3.5-5.1); Protein, Total 7.1 g/dL (6.4-8.2); Sodium Level 140 mmol/L (136-145)
== END | disposition home or self-care (01) ==
LOC: BWCLAB 09:47
PROVIDERS: Advanced Practice Midwife; PCP Family Medicine; Referring Provider Obstetrics & Gynecology; Visit Provider Obstetrics & Gynecology
DX: O10.919 Unspecified pre-existing hypertension complicating pregnancy, unspecified trimester (principal); Z3A.00 Weeks of gestation of pregnancy not specified
CPT/HCPCS: 36415; 80053; 82570; 84156; 85025

== ENCOUNTER → 2024-07-15 | Outpatient (CLI) | payer OTHER, SELFPAY ==
[2024-07-15 12:28] LABS: ALB/GLOB Ratio 0.9 RATIO (0.9-2.4); AST(SGOT) 45 U/L (15-37); Alanine Aminotransfer ALT/SGPT 91 U/L (13-56); Albumin, Serum 3.4 g/dL (3.2-5.0); Alkaline Phosphatase 107 U/L (45-117); Anion Gap 6 (5-15); BUN 12 mg/dL (7-18); BUN/Creat Ratio 13.1 RATIO (10-20); Calcium,Total 9.6 mg/dL (8.5-10.1); Chloride 105 mmol/L (98-107); Creatinine, Serum 0.91 mg/dL (0.55-1.02); EST Glomerular Filtration Rate 80 mL/min (>60); Est Glom Filt Rate - Afr Amer 97 mL/min (>60); Globulin 3.9 g/dL (2.2-4.2); Glucose 67 mg/dL (74-106); Potassium 4.2 mmol/L (3.5-5.1); Protein, Total 7.3 g/dL (6.4-8.2); Sodium Level 140 mmol/L (136-145)
== END | disposition home or self-care (01) ==
LOC: BWCLAB 09:03
PROVIDERS: PCP Family Medicine; Referring Provider Advanced Practice Midwife; Visit Provider Advanced Practice Midwife
DX: O10.919 Unspecified pre-existing hypertension complicating pregnancy, unspecified trimester (principal); Z3A.00 Weeks of gestation of pregnancy not specified
CPT/HCPCS: 36415; 80053